=== PATIENT | female | born 1955 | race American Indian/Alaskan Native ===

== ENCOUNTER 2017-11-19 08:52 | Emergency (ER) | payer OTHER ==
--- NOTE | 2017-11-19 10:54 | Emergency Department Report ---
Chief Complaint: Extremity Problem,Nontraumatic Stated Complaint: LEFT HIP PAIN Time Seen by Provider: 11/19/17 10:44 - HPI History of Present Illness: 62-year-old female presents to the emergency department with complaint of left hip pain that has been going on for the past 4 days. She denies any trauma or any event that may precipitated the discomfort. She says it is intermittent. When she took some of her 's 800 mg ibuprofen the pain goes away. It worsens when she is trying to climb some stairs or walk up something that is heavily. She has no past medical history. No recent travel or sick contacts at home. She denies any skin color change or swelling. - ROS Review of Systems: Positive for left hip pain Negative for skin color change, edema, fever - Exam Vital Signs: Vital Signs 11/19/17 09:22 Temperature 97.8 F Pulse Rate 60 Respiratory 16 Rate Blood Pressure 139/98 O2 Sat by Pulse 96 Oximetry Physical Exam: Patient is resting comfortably in no acute distress. Heart and lungs sounds normal auscultation. There is reproducible tenderness palpation of the left hip and anterior left proximal thigh. MSE screening note: Focused history and physical exam performed. Due to findings the following was ordered: We will obtain a x-ray of the left hip. ED Disposition for MSE Condition: Stable Referrals: [facility] [Other] - 3-5 Days
--- NOTE | 2017-11-19 12:05 | Emergency Department Report ---
ED Extremity Problem HPI - General Chief complaint: Extremity Problem,Nontraumatic Stated complaint: LEFT HIP PAIN Time Seen by Provider: 11/19/17 10:44 Source: patient, family Mode of arrival: Ambulatory Limitations: No Limitations - History of Present Illness Initial comments: 62-year-old female presents to the emergency department with complaint of left hip pain that has been going on for the past 4 days. Pain is 9/10 and achy. She denies any trauma or any event that may precipitated the discomfort. She says it is intermittent. When she took some of her 's 800 mg ibuprofen the pain goes away. It worsens when she is trying to climb some stairs or walk up something that is heavily. She has no past medical history. No recent travel or sick contacts at home. She denies any skin color change or swelling. MD Complaint: joint paint Onset/Timin -: days(s) Location: left Radiation: none Severity scale (0 -10): 9 Quality: aching Consistency: intermittent Improves with: rest Worsens with: walking, exertion, other (time and stairs) Associated Symptoms: arthralgias. denies: chest pain, shortness of breath, fever, myalgias, rash - Related Data Previous Rx's Medication Instructions Recorded Last Taken Type Ibuprofen [Motrin] 600 mg PO Q8H PRN #12 tablet 11/19/17 Unknown Rx Allergies Allergy/AdvReac Type Severity Reaction Status Date / Time No Known Allergies Allergy Unverified 08/12/15 09:58 ED Review of Systems ROS: Stated complaint: LEFT HIP PAIN Other details as noted in HPI Constitutional: denies: chills, fever Eyes: denies: eye pain, eye discharge, vision change ENT: denies: ear pain, throat pain Respiratory: denies: cough, shortness of breath, SOB with exertion, SOB at rest , wheezing Cardiovascular: denies: chest pain, palpitations, edema, syncope Gastrointestinal: denies: abdominal pain, nausea, vomiting, diarrhea, constipation Genitourinary: denies: urgency, dysuria, hematuria, discharge Musculoskeletal: arthralgia. denies: back pain, joint swelling, myalgia Skin: denies: rash, lesions Neurological: denies: headache, weakness, paresthesias, abnormal gait ED Past Medical Hx - Past Medical History Previous Medical History?: Yes Hx Arthritis: Yes - Surgical History Past Surgical History?: No - Family History Family history: no significant - Social History Smoking Status: Never Smoker Substance Use Type: None Other Social History: Lives of family - Medications Home Medications: Home Medications Medication Instructions Recorded Confirmed Last Taken Type Ibuprofen [Motrin] 600 mg PO Q8H PRN #12 tablet 11/19/17 Unknown Rx ED Physical Exam - General Limitations: No Limitations General appearance: alert, in no apparent distress - Head Head exam: Present: atraumatic, normocephalic, normal inspection - Eye Eye exam: Present: normal appearance, PERRL, EOMI Pupils: Present: normal accommodation - ENT ENT exam: Present: normal exam, normal orophraynx, mucous membranes moist - Neck Neck exam: Present: normal inspection, full ROM. Absent: tenderness, lymphadenopathy - Respiratory Respiratory exam: Present: normal lung sounds bilaterally. Absent: respiratory distress, chest wall tenderness - Cardiovascular Cardiovascular Exam: Present: regular rate, normal rhythm. Absent: systolic murmur, diastolic murmur - GI/Abdominal GI/Abdominal exam: Present: soft, normal bowel sounds. Absent: tenderness - Extremities Exam Extremities exam: Present: normal inspection, full ROM, normal capillary refill , other (NO CCE. +2 pulses in all extremities). Absent: tenderness, pedal edema , joint swelling, calf tenderness - Expanded Lower Extremity Exam Left Hip exam: Present: normal inspection, full ROM, pelvic stability. Absent: tenderness, swelling, abrasion, laceration, ecchymosis, deformity, crepidus, dislocation, erythema, external rotation, internal rotation, shortening Upper Leg exam: Present: normal inspection, full ROM. Absent: tenderness, swelling, abrasion, laceration, ecchymosis, deformity, crepidus, dislocation, erythema Knee exam: Present: normal inspection, full ROM, full knee extension. Absent: tenderness, swelling, abrasion, laceration, ecchymosis, deformity, crepidus, dislocation, effusion, pain w/ pronation/supination, posterior draw sign, pain/ laxity with valgus, pain/laxity with varus Lower Leg exam: Present: normal inspection, full ROM. Absent: tenderness, swelling, abrasion, laceration, ecchymosis, deformity, crepidus, dislocation, erythema, palpable cord, Erin's sign Ankle exam: Present: normal inspection, full ROM. Absent: tenderness, swelling , abrasion, laceration, ecchymosis, deformity, crepidus, dislocation, erythema Foot/Toe exam: Present: normal inspection, full ROM. Absent: tenderness, swelling, abrasion, laceration, ecchymosis, deformity, crepidus, dislocation, erythema, amputation, puncture wound, foreign body, calcaneal tenderness, tenderness at base of 5th metatarsal, nail avulsion, subungual hematoma Neuro vascular tendon exam: Present: no vascular compromise. Absent: pulse deficit, abnormal cap refill, motor deficit, sensory deficit, tendon deficit, extremity cold to touch, pallor, abnormal 2-point discrimination, decreased fine /light touch, foot drop, peroneal nerve deficit, significant pain with passive ROM of distal joint Gait: Positive: observed and normal - Back Exam Back exam: Present: normal inspection, full ROM, other (ambulates without difficulties). Absent: tenderness, CVA tenderness (R), CVA tenderness (L), muscle spasm, paraspinal tenderness, vertebral tenderness, rash noted - Neurological Exam Neurological exam: Present: alert, oriented X3, normal gait, reflexes normal. Absent: motor sensory deficit - Psychiatric Psychiatric exam: Present: normal affect, normal mood - Skin Skin exam: Present: warm, dry, intact, normal color. Absent: rash ED Course Vital Signs 11/19/17 11/19/17 09:22 14:27 Temperature 97.8 F 98 F Pulse Rate 60 58 L Respiratory 16 16 Rate Blood Pressure 139/98 Blood Pressure 133/82 [Left] O2 Sat by Pulse 96 98 Oximetry - Reevaluation(s) Reevaluation #1: 11/19/17 14:30 Patient given Hydrocodone 2 tablets and motrin 800 mg po in ED ED Medical Decision Making - Radiology Data XRAY left hip normal per radiologist dictation - Medical Decision Making ED Course 62 yo female present to ED with complaints of Left hip pain Patient was evaluated by myself and Dr torrez and she is stable. XRAY left hip normal per radiologist dictation. Xray findings communicated to patient and she voiced understanding Clinical Impression 1:Arthralgia left hip-resolved with Hydrocodone 5/325mg 2 tabs and Motrin 800mg. Xr normal referral to Orthopedist prescription for Motrin 600 mg po patient educated on medication, diagnosis and treatment plan and she voiced understanding Patient discharge home with family in stable condition , VSS, afeb and to follow up with PCP and orthopedist or to return to ED if symptoms worsens - Differential Diagnosis Hip Fx, Joint effusion, Bursitis, arthralgia Critical care attestation.: If time is entered above; I have spent that time in minutes in the direct care of this critically ill patient, excluding procedure time. ED Disposition Clinical Impression: Arthralgia of left hip Disposition: TO HOME OR SELFCARE Is pt being admited?: No Does the pt Need Aspirin: No Condition: Stable Instructions: Arthralgia (ED) Additional Instructions: F/U With orthopedic doctor as instructed Take Motrin for pain. Prescriptions: Ibuprofen [Motrin] 600 mg PO Q8H PRN #12 tablet PRN Reason: Pain Referrals: [facility] [Other] - 2-3 Days KEDAR AREVALO MD [Staff Physician] - 2-3 Days Forms: Work/School Release Form(ED)
[2017-11-19] MEDS ORDERED: MOTRIN PO ONE (13:51)
[2017-11-19] MEDS ORDERED: NORCO 5/325 PO ONE (13:51)
[2017-11-19 14:28] VITALS: BP 133/82
--- NOTE | 2017-11-21 12:57 | XRay Report ---
LEFT HIP, 2 views: History: Left hip pain. The bony architecture is intact without evidence of fracture or dislocation. No significant soft tissue abnormality is seen. IMPRESSION: Normal left hip.
== END 2017-11-19 14:27 | disposition home or self-care (01) ==
LOC: ED 08:52
DX: M25.562 Pain in left knee (principal)
CPT/HCPCS: 99283